=== PATIENT | female | born 1970 | race Caucasian/White ===

== ENCOUNTER 2017-09-12 09:27 | Inpatient (IN) ==
[~2017-09-12 09:27] MED LIST: Bacitracin 50,000 UNIT, Polymyxin B Sulfate 500,000 UNIT, Sodium Chloride IRRigation 1,... IR ONE
[2017-09-12] MEDS ORDERED: *HR* OxyCODONE Immed Rel 5 MG TABLET PO PRN (09:56)
[2017-09-12] MEDS ORDERED: *HR* Labetalol 20 MG/4 ML SYRINGE IVP PRN (09:56)
[2017-09-12] MEDS ORDERED: MORPHINE SUL Oral CONC 10 MG/0.5 ML ORAL.SYG SL PRN (09:56)
[2017-09-12] MEDS ORDERED: Lidocaine -MPF 1% 2 ML VIAL ID ONE (10:00)
[2017-09-12] MEDS ORDERED: Ringers Solution, Lactated 1,000 ML IVC SCH ×2 (10:00→15:45)
[2017-09-12] MEDS ORDERED: Albuterol 2.5 MG/3 ML NEBULIZER IH ONE (10:00)
[2017-09-12] MEDS ORDERED: *HR* Propofol 200 MG/20 ML VIAL IVP ONE ×2 (10:18→12:43)
[2017-09-12] MEDS ORDERED: Ondansetron 4 MG/2 ML VIAL ONE (10:18)
[2017-09-12] MEDS ORDERED: Dexamethasone 4 MG/ML VIAL ONE (10:18)
[2017-09-12] MEDS ORDERED: *HR* Succinylcholine 200 MG/10 ML VIAL IVP ONE (10:18)
[2017-09-12] MEDS ORDERED: *HR* FentaNYL (PF) 100 MCG/2 ML VIAL ONE ×2 (10:18→14:34)
[2017-09-12] MEDS ORDERED: Lidocaine -MPF 2% 2 ML VIAL ONE (10:19)
--- NOTE | 2017-09-12 10:20 | Anesthesia Evaluation PreOp ---
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: Seizures (last at age 1), Other (lumbar radiculopathy) Other Medical History: GERD, Other (Hx cervical cancer) Anesthesia History: No Prior Anesthetic Complications, Past Anesthesia (sinus sx , CTR, breast cyst, tendon sx) Alcohol Use: occasionally Drug use: none Medications and Allergies Acetaminophen [Tylenol] 650 mg PO Q6HR PRN 09/12/17 [History] Cyclobenzaprine [Flexeril] 5 mg PO BID 09/12/17 [History] FLUoxetine HCl [PROzac] 20 mg PO DAILY 09/12/17 [History] Sulindac [Sulindac] 200 mg PO BID 09/12/17 [History] 3 Allergy/AdvReac Type Severity Reaction Status Date / Time phenobarbital Allergy Seizure Verified 09/12/17 09:55 - Meds/Allergy Pre-op Review Medications Reviewed: Yes Allergies Reviewed: Yes Beta Blockers on Current Med List: No Anesthesia Results - Labs Laboratory Tests 09/07/17 09/07/17 09:32 09:32 Hgb 13.0 Hct 38.4 Plt Count 248 Sodium 140 Potassium 3.8 BUN 17 Creatinine 0.55 L - Imaging Additional studies: stress test 2016: Impression: The exercise capacity was good. Exercise ECG is negative for ischemia. Gated LVEF = 58%. Perfusion imaging was negative for ischemia or infarct. Anesthesia Exam Selected Entries 09/12/17 10:02 Temperature 98.5 F Pulse Rate 68 Respiratory Rate 18 Blood Pressure 124/63 O2 Sat by Pulse Oximetry 100 Oxygen Delivery Method Room Air Weight: 59kg NPO (# of Hours): 8 - HEENT Pupil (Motor): EOMI Mallampati: III Teeth: Normal Oral Opening: Greater than 3 - [employer] LICENSE EXAMINER LOC: Oriented [employer] LICENSE EXAMINER Motor: Normal RUE, Normal LUE, Normal RLE, Normal LLE, Normal Face [employer] LICENSE EXAMINER Sensory: Normal: RUE, LUE, RLE, LLE, Face - Cardiac Rhythm: Regular Murmur: None - Pulmonary Breath Sounds: bilateral Clear Respiratory Effort: Symmetrical Anesthesia Assess/Plan ASA Score: 2 Modified [place] Scale for Level of Consciousness: Cooperative, oriented, and tranquil Anesthetic Plan: General Monitoring Plan: Standard Monitors Recovery Plan: PACU (agrees to GA)
--- NOTE | 2017-09-12 11:14 | History & Physical Report ---
Date of Encounter: 09/12/17 Time of Encounter: 11:14 24 Hour HP Update - Instructions Instructions: If the History and Physical is less than 30 days old and was completed prior to A.M. admission and or procedure and has NOT been updated on calendar day of procedure please complete this update prior to performing procedure. - Update Patient reports changes in Medical Condition: No Changes in examination, assessment, or condition: No Changes in Medication: No Preop tests/diagnostics Reviewed: Yes Pre-Op MRSA Screen: Negative Surgery Remains Indicated: Yes Consent for Planned Operative Procedure(s) Verified: Yes - Pre-Operative Checklist Preoperative Checklist Indicated: No Prophylactic Antibiotic Ordered: Yes Home Medications Include Beta Jesusita: No Beta Jesusita Taken Today (Day of Surgery): No Beta Jesusita Taken Yesterday (Day Prior to Surgery): No Is VTE Prophylaxis Indicated?: Yes
[2017-09-12] MEDS ORDERED: Lacri-Lube 3.5 GM TUBE ONE (12:01)
[2017-09-12] MEDS ORDERED: *HR* PHENYLEPHRINE 1,000 MCG/10 ML SYRINGE IVP ONE ×3 (12:06→13:32)
[2017-09-12] MEDS ORDERED: *HR* Remifentanil 2 MG VIAL IVP ONE (12:20)
[2017-09-12] MEDS ORDERED: *HR* Rocuronium Bromide 50 MG/5 ML VIAL ONE (12:43)
[2017-09-12] MEDS ORDERED: EPHEDrine 50 MG/ML VIAL ONE (12:54)
[2017-09-12] MEDS ORDERED: Neostigmine Methylsulfate 3 MG/3 ML SYRINGE ONE (14:16)
[2017-09-12] MEDS: *HR* Promethazine 25 MG/ML VIAL IVP PRN ×2 (15:08→15:26)
--- NOTE | 2017-09-12 15:41 | Anesthesia Evaluation Post Op ---
Date of Encounter: 09/12/17 Time of Encounter: 15:40 - Vital Signs Vital Signs: Vital Signs/O2 Sat/Glucose, Most Current Temp Pulse Resp BP Pulse Ox 09/12/17 15:38 84 16 122/72 96 09/12/17 15:20 98.5 F 75 16 125/73 100 09/12/17 15:10 78 16 112/75 100 09/12/17 15:00 79 16 125/88 100 09/12/17 14:50 98.5 F 95 14 117/82 99 - Lungs Lungs: Clear Ascult./Percussion - Airway Airway: Non-obstructed - Cardiovascular Regular Rate - Mental Status Mental Status: Alert & Oriented, Answers Appropriately - Pain Pain Scale: 0 - Nausea Vomiting Nausea Vomiting: Not Present - Hydration Hydration: Tolerates oral liquids - Discharge PostOp Status: Transfer Patient to floor
[2017-09-12] MEDS ORDERED: Naloxone 0.4 MG/ML INJ IVP PRN (15:43)
[2017-09-12] MEDS ORDERED: CeFAZolin Pre 2,000 MG/100 ML 2,000 MG/100 ML BAG IVPB SCH (16:00)
[2017-09-12] MEDS: *HR* HYDROcodone/Acet 5/325 mg TABLET PO PRN (17:27)
[2017-09-12] MEDS: *HR* OxyCODONE Immed Rel 5 MG TABLET PO PRN ×3 (18:30→23:19)
[2017-09-12] MEDS ORDERED: Acetaminophen IV 1,000 MG/100 ML INFUS..BTL IVPB PRN (18:42)
[2017-09-12] MEDS ORDERED: diazePAM 10 MG TABLET PO ONE (18:42)
[2017-09-12] MEDS ORDERED: *HR* LORazepam 2 MG/ML VIAL IVP PRN ×3 (18:45)
[2017-09-13] MEDS: CeFAZolin Pre 2,000 MG/100 ML 2,000 MG/100 ML BAG IVPB SCH ×2 (01:43→08:51)
[2017-09-13 05:58] LABS: Basophils % 0.2 %; Hematocrit 34.5 % (35.3-44.9); Hemoglobin 11.6 g/dL (11.5-15.4); Immature Granulocytes % 0.3 % (0-4); Immature Platelets 3.5 % (1.1-6.1); Lymphocytes # 1.1 K/mcL (0.6-4.6); Lymphocytes % 9.3 %; Mean Corpuscular HGB Conc 33.6 g/dL (31.6-35.5); Mean Corpuscular Hemoglobin 31.9 pg (28.0-33.3); Mean Corpuscular Volume 94.8 fL (83.0-100.0); Mean Platelet Volume 10.2 fL (9.4-12.4); Monocytes # 0.6 K/mcL (0.0-1.3); Monocytes % 5.5 %; Neutrophils # 9.9 K/mcL (1.6-8.9); Platelet Count 256 K/mcL (140-400); Red Blood Count 3.64 M/mcL (3.82-4.97); Red Cell Distribution Width 12.8 % (11.5-14.5); Segmented Neutrophils % 84.7 %
[2017-09-13 06:18] LABS: BUN/Creatinine Ratio 33 (6-26); Blood Urea Nitrogen 16 mg/dL (6-20); Calcium 8.7 mg/dL (8.6-10.3); Carbon Dioxide 23 mEq/L (23-29); Chloride 102 mEq/L (98-107); Glucose 157 mg/dL (70-105); Osmolality,Calculated 280 (280-300); Potassium 3.5 mEq/L (3.5-5.1); Sodium 133 mEq/L (136-145); eGFR For African Americans > 60 (> 60); eGFR For Non-African Americans > 60 (> 60)
[2017-09-13] MEDS: Acetaminophen 325 MG TABLET PO PRN ×2 (09:00→15:23)
--- NOTE | 2017-09-13 14:37 | Orthopedics Progress Note ---
Date of Encounter: 09/13/17 Time of Encounter: 08:20 - Assessment and Plan (1) Spondylolisthesis Current Visit: Yes Status: Chronic Qualifiers: Spinal region: unspecified Qualified Code(s): M43.10 - Spondylolisthesis, site unspecified (2) Synovial cyst of lumbar facet joint Current Visit: Yes Status: Chronic (3) Lumbar radiculopathy Current Visit: Yes Status: Chronic (4) Status post lumbar spinal fusion Current Visit: Yes Status: Acute Subjective Principal diagnosis: Spondylolisthesis L4-5, synovial cyst facet joint, lumbar radiculopathy Interval history: POD #1 status post with L4-L5 on 09/12/[address] Virgen for Spondylolisthesis L4-5, synovial cyst facet joint, lumbar radiculopathy. Patient seen at bedside. Spouse at bedside. The patient complains of pain in the lower mid back. Patient noted to be wearing a back brace as directed. Afebrile vital signs are stable. Incision is clean dry and intact. Neurovascularly intact with regard to bilateral lower extremities. Fires all upper and lower extremity motor groups. Assessment: Stable postoperative. Plan: Reviewed postoperative restrictions and precautions. Patient and spouse verbalized understanding. Brace present and patient aware to apply with activity. Mobilize with therapy Continue analgesics as needed Discharge planning - awaiting therapy recommendations Radiographs pending Objective Vital signs: Vital Signs Temp Pulse Resp BP Pulse Ox 09/13/17 06:43 98.4 F 79 16 146/78 99 09/13/17 03:48 98.6 F 85 18 145/87 100 09/12/17 23:53 97.9 F 74 16 148/79 100 09/12/17 19:23 97.5 F L 97 16 144/76 100 09/12/17 17:12 98.8 F 78 16 167/93 99 09/12/17 16:35 89 16 131/79 98 09/12/17 15:43 98.1 F 75 16 130/77 98 09/12/17 15:38 84 16 122/72 96 09/12/17 15:20 98.5 F 75 16 125/73 100 09/12/17 15:10 78 16 112/75 100 09/12/17 15:00 79 16 125/88 100 09/12/17 14:50 98.5 F 95 14 117/82 99 Intake and Output 09/12/17 09/13/17 09/13/17 23:59 07:59 15:59 Intake Total 300 / 300 Output Total 1750 / 1750 Balance -1450 / -1450 Intake: IV Fluids 100 / 100 Ancef Premix 2,000 MG/100 ML 2, 100 / 100 000 mg In 100 ml @ 200 mls/hr IVPB Q8HR [facility] Rx#:[id number] Oral 200 / 200 Output: Catheter 1750 / 1750 - Labs CBC & BMP: 09/13/17 01:45 09/13/17 01:45 Labs: Abnormal lab results WBC 11.7 K/mcL (4.3-11.1) H D 09/13/17 01:45 RBC 3.64 M/mcL (3.82-4.97) L 09/13/17 01:45 Hct 34.5 % (35.3-44.9) L 09/13/17 01:45 Neutrophils # 9.9 K/mcL (1.6-8.9) H 09/13/17 01:45 Sodium 133 mEq/L (136-145) L 09/13/17 01:45 Creatinine 0.49 mg/dL (0.60-1.20) L 09/13/17 01:45 BUN/Creatinine Ratio 33 (6-26) H 09/13/17 01:45 Glucose 157 mg/dL (70-105) H 09/13/17 01:45 - VTE Documentation of Mechanical Device: Intermittent pneumatic compression device Consult Discharge Plan - Plan Referrals: Gatito London MD [Primary Care Provider] -
[2017-09-13] MEDS: *HR* HYDROcodone/Acet 5/325 mg TABLET PO PRN (21:17)
[2017-09-14] MEDS: *HR* OxyCODONE Immed Rel 5 MG TABLET PO PRN (02:04)
[2017-09-14 07:18] VITALS: BP 118/67
[2017-09-14] MEDS: Acetaminophen 325 MG TABLET PO PRN (07:53)
--- NOTE | 2017-09-14 08:58 | Discharge Summary ---
Orders not resulted at time of discharge: Pending orders 09/12/17 12:28 XR fluoroscopy <1 hr [XR] Routine 09/14/17 08:00 XR lumbar spine 2-3V [XR] Routine Date of Encounter: 09/14/17 Time of Encounter: 08:20 - Discharge Diagnosis (1) Spondylolisthesis Priority: Primary Status: Chronic Qualifiers: Spinal region: unspecified Qualified Code(s): M43.10 - Spondylolisthesis, site unspecified (2) Synovial cyst of lumbar facet joint Priority: Primary Status: Chronic (3) Lumbar radiculopathy Priority: Primary Status: Chronic (4) Status post lumbar spinal fusion Priority: Primary Status: Acute - Hospital Course Hospital course: Ms. Valdes is a 46 year old female status post PLIF L4-L5 on 09/12/[address] Virgen for Spondylolisthesis L4-5, synovial cyst facet joint, lumbar radiculopathy The patient had an uneventful postoperative course. Progressed from intravenous analgesic needs to oral analgesic needs only. Remained neurovascularly intact and mobilized satisfactorily. All intraoperative and/or postoperative radiographic studies were satisfactory. Patient is discharged with plan for rehabilitation and follow-up in 2 weeks post discharge on analgesic medication and patient's home medications. - Time Spent with Patient Total time spent providing and/or coordinating discharge services: - Discharge Medications Prescriptions: OxyCODONE Immed Rel [Roxicodone 5 MG] 5 mg PO Q6H PRN 7 Days #28 tablet PRN Reason: Severe Pain Home Medications: Acetaminophen [Tylenol] 650 mg PO Q6HR PRN 09/12/17 [History] Cyclobenzaprine [Flexeril] 5 mg PO BID 09/12/17 [History] FLUoxetine HCl [Prozac] 20 mg PO DAILY 09/12/17 [History] Sulindac 200 mg PO BID 09/12/17 [History] OxyCODONE Immed Rel [Roxicodone 5 MG] 5 mg PO Q6H PRN 7 Days #28 tablet [Rx] Allergies/Adverse Reactions: 3 Allergy/AdvReac Type Severity Reaction Status Date / Time phenobarbital Allergy Seizure Verified 09/12/17 09:55 Date of admission: 09/12/17 15:37 Primary care physician: Gatito London MD Consults: 09/12/17 15:43 Consult to Occupational Therapy [CONS] Routine Comment: Evaluate, develop and implement POC Reason for Consult: eval and treat Does patient have active BEDREST order?: No Is patient medically & hemodynamically stable?: Yes Consult to Physical Therapy [CONS] Routine Comment: Evaluate, develop and implement POC Reason for Consult: eval and treat Does patient have active BEDREST order?: No Is patient medically & hemodynamically stable?: Yes Consult to Spine Navigator [CONS] [CONS] Routine 09/12/17 16:08 Consult to Pastoral Services [CONS] Routine Comment: 09/12/17 18:45 Consult to Software Developer Manager [CONS] Routine Reason for SW Consult: CIWA PROTOCOL - VTE Documentation of Mechanical Device: Intermittent pneumatic compression device - Impressions ITS Impressions Lumbar Spine X-Ray 09/12/17 12:28 IMPRESSION: Interval performance of an L4-L5 laminectomy with PLIF hardware. Prior anterolisthesis of L4 upon L5 has been reduced. D/ / Sarah Anders MD / Sarah Anders MD Interpreting Provider: Sarah Anders MD - Patient Status Disposition: Home, Self-Care Condition: Good Functional capacity at discharge: uses cane/walker Overall status at discharge: patient is progressing back to baseline - Discharge Instructions Follow Up With: Gatito London MD [Primary Care Provider] - Additional Instructions: Discharge Instructions: Lumbar Please call [facility] ([phone]), your Primary Care Physician, or report to the ER if you have any of the following symptoms: Fever greater that 101.5, increased pain/redness/drainage/odor for your incision site or any other concerning symptoms. ACTIVITY * May Shower * No Tub Baths * No lifting greater than 10 pounds * No Smoking * No Swimming * No off Ground Activities (Running, Climbing, Ladders, Horseback Riding) * No Driving * Wear Back Brace when up walking if lumbar fusion done MEDICATIONS: Upon discharge resume your home medications. Take all the medications as prescribed. Take a stool softener if taking narcotic pain medications. Stool softeners are only effective if you drink enough fluids. Drink 6-8 glass of water or fluids a day, unless this is not allowed for another health problem. Despite using stool softeners, if you haven't had a bowel movement in 3 days, please switch to a gentle laxative. Gentle laxatives are sold over the counter. You should have a bowel movement within 24 hours, if not call the office. You will be discharged from the hospital with a prescription for pain medication. You are encouraged to decrease the use of narcotic pain medication as tolerated. Should you require a refill, please call the office. It is best to call 48-72 hours in advance of needing a prescription refill so you don't run out of medication. WOUND CARE: Remove Dressing Tomorrow. Leave incision open to air. Pat dry when you get out of the shower. FOLLOW-UP: Please follow up with your surgeon in the orthopedic clinic in 2 weeks from the day of surgery. References: [employer] ([email or web address]) - Diet and Activity Activity: as per physical therapy Diet: advance to your usual diet
--- NOTE | 2017-09-14 12:44 | Orthopedic Operative Note ---
Date of procedure: 09/12/17 Pre-op diagnosis: Spondylolisthesis, lumbar stenosis, lumbar radiculopathy Post-op diagnosis: same Operation/Findings: Posterior lumbar interbody fusion L4-L5: The patient successfully underwent general endotracheal anesthesia. The patient was given antibiotics prior to the start of the procedure. Compression boots and stockings were used for deep vein thrombosis prophylaxis. A Bess catheter was placed. Leads for neuro monitoring were placed on the upper and lower extremities. This included the cranium. The neuro monitoring personnel confirmed there were satisfactory readings prior to the start of the procedure. The patient was turned prone on the Nikhil table. The back was prepped and draped in the usual sterile fashion. An incision was was marked and centered over the involved L4-L5 levels in the mid line. The incision was deepened through the lumbar fascia. Bovie cautery and Odonnell elevators were used to reflect the paraspinal musculature at the lateral extent of the transverse processes of the involved L4 and L5 levels. Ngoc clamps were placed over the L4 and L5 spinous processes. An intraoperative lateral fluoroscopy graft was obtained. A conversation was held between the surgeon and radiologist and both confirmed we had the correct operative levels. We then placed pedicle screws in standard fashion with the aid of fluoroscopy and anatomic landmarks. Briefly a starter awl was used. A gearshift was subsequently used to enter the ems helicopter pilot hole via a transpedicular route into the vertebral body. The ems helicopter pilot hole was tapped with an undersized instrument, and subsequently four 6.5 x 40 mm pedicle screws were placed bilaterally at the indicated L4 and L5 levels. The screws were tested with the aid of the neurologic monitoring staff via pedicle screw stimulation. All reading suggested there was no significant cortical wall breech. The screws were also evaluated fluoro- graphically and appeared to be in satisfactory position. We then turned our attention to the decompression portion of the procedure. We removed the supraspinous and interspinous ligaments and subsequently the insertion of the ligamentum flavum on the undersurface of the proximal lamina was dislodged with a curette. We then removed the ligamentum flavum as well as undercut the facets at this L4-L5 level to decompress the lateral recesses. We also performed a L4 laminectomy. After the decompression which, was over and above that which was required to place the interbody graft, the foramen and traversing roots at this L4-L5 level were found to be free and patent. We also took part of the medial facets in order to aid in the decompression. We then protected the neural elements including the thecal sac and traversing nerve root on the right with a dural retractor. We made an annulotomy into the L4-L5 disc space and then removed entire disc material using Pituitary instruments. We trialed various size grafts after the endplates were prepared for graft insertion. A 10 x 26 enter body graft fit well within the disc space. We obtained some bone from the right posterior superior iliac spine through us a separate incision and combined with this with the bone which we had saved from the laminectomy portion of the procedure. This autograft bone was first placed in the anterior portion of the L4-L5 disc space and additional bone was placed within the interbody graft spacer. We then placed the interbody graft spacer obliquely across the disc space towards the midline while protecting the neural elements with a root retractor. When the graft was found to be in satisfactory position the bit setter was removed. We then copiously irrigated the wound. We then decorticated the transverse processes at L4 and L5 as well as the L4-L5 facet joints of the involved levels to aid in the posterolateral fusion. We placed autograft bone in the lateral gutters over these regions. We then placed rods within the screw heads of the involved levels and first locked the distal screws and then subsequently locked the proximal screws so as to improve and reduce the spondylolisthesis previously seen. We then closed the wound in layers with 1 Vicryl for the fascia, 2-0 Vicryl. Subcutaneous tissue, and Dermabond was used for skin closure. Sterile dressings were placed over the wound. The patient was turned supine on a hospital bed and extubated. All sponge instruments and needle counts were correct at the end of the procedure. The patient tolerated the procedure well without complications. Anesthesia: GETA Surgeon: Tera Virgen Jr Was there an pharmaceutical assistant present: No Estimated blood loss (cc): 150 Specimen: None Condition: stable Disposition: PACU
--- NOTE | 2017-09-14 16:17 | Orthopedics Progress Note ---
Date of Encounter: 09/14/17 Time of Encounter: 08:20 - Assessment and Plan (1) Spondylolisthesis Status: Chronic Qualifiers: Spinal region: unspecified Qualified Code(s): M43.10 - Spondylolisthesis, site unspecified (2) Synovial cyst of lumbar facet joint Status: Chronic (3) Lumbar radiculopathy Status: Chronic (4) Status post lumbar spinal fusion Status: Acute Subjective Principal diagnosis: Spondylolisthesis L4-5, synovial cyst facet joint, lumbar radiculopathy Interval history: POD #1 status post with L4-L5 on 09/12/[address] Virgen for Spondylolisthesis L4-5, synovial cyst facet joint, lumbar radiculopathy. Patient seen at bedside. The patient complains of pain in the lower mid back - she states this is improved today over yesterday. Patient noted to be wearing a back brace as directed. Afebrile vital signs are stable. Incision is clean dry and intact. Neurovascularly intact with regard to bilateral lower extremities. Fires all upper and lower extremity motor groups. Assessment: Stable postoperative. Plan: Reviewed postoperative restrictions and precautions. Patient verbalized understanding. Brace present and patient aware to apply with activity. Mobilize with therapy Continue analgesics as needed Discharge planning - home with self-care today Radiographs reviewed Objective Vital signs: Vital Signs Temp Pulse Resp BP Pulse Ox 09/14/17 06:55 98.3 F 79 16 118/67 94 09/14/17 00:27 98.0 F 77 14 114/62 92 09/13/17 20:01 98.7 F 97 16 133/85 92 - Labs CBC & BMP: 09/13/17 01:45 09/13/17 01:45 Labs: Abnormal lab results WBC 11.7 K/mcL (4.3-11.1) H D 09/13/17 01:45 RBC 3.64 M/mcL (3.82-4.97) L 09/13/17 01:45 Hct 34.5 % (35.3-44.9) L 09/13/17 01:45 Neutrophils # 9.9 K/mcL (1.6-8.9) H 09/13/17 01:45 Sodium 133 mEq/L (136-145) L 09/13/17 01:45 Creatinine 0.49 mg/dL (0.60-1.20) L 09/13/17 01:45 BUN/Creatinine Ratio 33 (6-26) H 09/13/17 01:45 Glucose 157 mg/dL (70-105) H 09/13/17 01:45 - VTE Documentation of Mechanical Device: Intermittent pneumatic compression device Consult Discharge Plan - Plan Additional Instructions: Discharge Instructions: Lumbar Please call [facility] ([phone]), your Primary Care Physician, or report to the ER if you have any of the following symptoms: Fever greater that 101.5, increased pain/redness/drainage/odor for your incision site or any other concerning symptoms. ACTIVITY * May Shower * No Tub Baths * No lifting greater than 10 pounds * No Smoking * No Swimming * No off Ground Activities (Running, Climbing, Ladders, Horseback Riding) * No Driving * Wear Back Brace when up walking if lumbar fusion done MEDICATIONS: Upon discharge resume your home medications. Take all the medications as prescribed. Take a stool softener if taking narcotic pain medications. Stool softeners are only effective if you drink enough fluids. Drink 6-8 glass of water or fluids a day, unless this is not allowed for another health problem. Despite using stool softeners, if you haven't had a bowel movement in 3 days, please switch to a gentle laxative. Gentle laxatives are sold over the counter. You should have a bowel movement within 24 hours, if not call the office. You will be discharged from the hospital with a prescription for pain medication. You are encouraged to decrease the use of narcotic pain medication as tolerated. Should you require a refill, please call the office. It is best to call 48-72 hours in advance of needing a prescription refill so you don't run out of medication. WOUND CARE: Remove Dressing Tomorrow. Leave incision open to air. Pat dry when you get out of the shower. FOLLOW-UP: Please follow up with your surgeon in the orthopedic clinic in 2 weeks from the day of surgery. References: [employer] ([email or web address]) Referrals: Gatito London MD [Primary Care Provider] - Prescriptions: OxyCODONE Immed Rel [Roxicodone 5 MG] 5 mg PO Q6H PRN 7 Days #28 tablet PRN Reason: Severe Pain
== END 2017-09-14 13:27 | disposition home or self-care (01) | DRG 460 ==
LOC: SAMDAY 09:27 → 3NENU 15:37
PROVIDERS: ADMIT Orthopaedic Surgery Orthopaedic Surgery of the Spine; ATTEND Orthopaedic Surgery Orthopaedic Surgery of the Spine